=== PATIENT | female | born 1985 ===

== ENCOUNTER 2017-11-20 14:17 | Emergency (ER) | payer MEDICAID ==
[2017-11-20] MEDS ORDERED: METH40TA14 PO (14:52)
--- NOTE | 2017-11-20 15:00 | ER Report ---
History and Physical Time Seen By MD: 14:46 Hx. of Stated Complaint: pt presents with hx of iv drug use, and recently relapsed 2 nights ago. States has an abscess form used needles HPI/ROS CHIEF COMPLAINT: Abscess HISTORY OF PRESENT ILLNESS: This is a 32-year-old female who presents to the emergency department for an abscess. Patient states that she is in IV heroin user and has an autoimmune skin disorder. Patient states that she has developed an abscess to her right forearm over the last several days, patient states she was coming landed on her own however she decided to come in for further evaluation. Patient is on doxycycline orally. Patient has no other complaints no chest pain or shortness of breath, no nausea or vomiting. REVIEW OF SYSTEMS: Respiratory: No cough, no dyspnea. Cardiovascular: No chest pain, no palpitations. Gastrointestinal: No vomiting, no abdominal pain. Musculoskeletal: No back pain. Integumentary: As above. Allergies: Coded Allergies: No Known Drug Allergies (Unverified , 11/20/17) Home Meds Active Scripts Cephalexin 500 Mg Tab (KEFLEX 500 MG TAB) 500 Mg Tablet, 500 MG PO Q6H, #28 TAB Prov:[facility] 11/20/17 Sulfamethoxazole/Trimet 800-160 Mg Tab (BACTRIM DS TABLET) 1 Each Tablet, 1 TAB PO Q12H, #20 TAB Prov:[facility] 11/20/17 Reported Medications Doxycycline Monohydrate (DOXYCYCLINE MONOHYDRATE) 100 Mg Capsule, 100 MG PO BID , CAPSULE 11/20/17 Prazosin Hcl (PRAZOSIN HCL) 2 Mg Capsule, 2 MG PO QDAY, CAPSULE 11/20/17 Methylphenidate Hcl (RITALIN) 20 Mg Tablet, 20 MG PO 11/20/17 Venlafaxine Hcl (EFFEXOR XR) 75 Mg Cap.er.24h, 75 MG PO QDAY 11/20/17 Methadone Hcl (METHADONE HCL) 40 Mg Tablet.rich, 180 MG PO Q8-12H 11/20/17 Discontinued Reported Medications Doxycycline Hyclate (Doxycycline Hyclate) 75 Mg Tablet 11/20/17 Past Medical/Surgical History Patient has a past medical and surgical history of lichen sclerosis, 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 Reviewed Nurses Notes: Yes Constitutional Vital Sign - Last 24 Hours 11/20/17 11/20/17 14:42 15:58 Temp 98.3 Pulse 68 72 Resp 20 20 B/P (MAP) 101/61 105/63 (77) Pulse Ox 95 95 O2 Delivery Room Air Room Air Physical Exam General Appearance: The patient is alert, has no immediate need for airway protection and no current signs of toxicity. Eyes: Pupils equal and round no injection. Respiratory: Chest is non tender, lungs are clear to auscultation. Cardiac: regular rate and rhythm. Gastrointestinal: Abdomen is soft and non tender, no masses, bowel sounds normal. Musculoskeletal: Neck: Neck is supple and non tender. Extremities have full range of motion and are non tender. Skin: Large abscess to the right ulnar side of the forearm. With surrounding erythema. Multiple scars and wounds and track hein. Multiple skin grafts. DIFFERENTIAL DIAGNOSIS: After history and physical exam differential diagnosis was considered for abscess. Medical Decision Making ED Course/Re-evaluation ED Course The patient was admitted to room. A history physical were obtained. Differential diagnoses were considered. Patient has multiple skin grafts secondary to her autoimmune disease, lichen sclerosis, patient is also a long time heroin and cocaine user. Patient states she injected into her right forearm couple days ago and developed an abscess. She states she was going to [place] it on her own however given the size of the abscess she elected to come in for I&D and antibiotics. Patient is taking doxycycline currently. An I&D of the left forearm as noted below. Patient was started on Bactrim and Keflex. Patient is to return within 24 hours for reevaluation of the wound and removal of the wick and possible placement of a 2nd wick. Patient had no other questions or concerns at this time and was discharged home. Patient will return to [facility] Tuesday or Tuesday, she does have a follow-up appointment with her instructional technology specialist. Procedure: Abscess drainage. The patient's abscess was located on the right forearm, ulnar side. I obtained verbal consent from the patient to drain the abscess who was informed about the possibility of bleeding and pain. The abscess was incised with a scalpel and a large amount of purulent drainage was expressed. I irrigated the wound and placed some packing. The patient tolerated the procedure well. The procedure was performed by myself. Decision to Disposition Date: November 20, 2017 Decision to Disposition Time: 15:57 Depart Departure Latest Vital Signs Vital Signs Date Time Temp Pulse Resp B/P (MAP) Pulse Ox O2 Delivery O2 Flow Rate FiO2 11/20/17 15:58 72 20 105/63 (77) 95 Room Air 11/20/17 14:42 98.3 Impression: Primary Impression: Abscess of right forearm Condition: Improved Disposition: HOME OR SELF-CARE New Scripts Cephalexin 500 Mg Tab (KEFLEX 500 MG TAB) 500 Mg Tablet 500 MG PO Q6H, #28 TAB Prov: MARY [facility]- 11/20/17 Sulfamethoxazole/Trimet 800-160 Mg Tab (BACTRIM DS TABLET) 1 Each Tablet 1 TAB PO Q12H, #20 TAB Prov: MARY [facility]ENT- 11/20/17 Patient Instructions: Abscess (ED), Abscess Incision and Drainage (GEN) Additional Instructions: Drink plenty of fluids. Get plenty of rest. Return to the ED in 24 hours for reevaluation of the abscess and removal of the drain. Follow up with your control specialist when you return to [facility]. Return to the ED for any other concerns or worsening symptoms. MARY TRENTP- November 20, 2017 15:00
[2017-11-20] MEDS ORDERED: METH20TA33 PO (15:01)
[2017-11-20] MEDS ORDERED: VENL75CA58 PO (15:01)
[2017-11-20] MEDS ORDERED: DOXY-252 PO (15:03)
[2017-11-20] MEDS ORDERED: PRAZ2CAP26 PO (15:03)
[2017-11-20] MEDS ORDERED: DOXY75TA (15:03)
[2017-11-20] MEDS ORDERED: SULF-198 PO (15:23)
[2017-11-20] MEDS ORDERED: CEPH500T7 PO (15:23)
[2017-11-20 15:58] VITALS: BP 105/63
== END 2017-11-20 16:00 | disposition home or self-care (01) ==
LOC: ER 14:48
DX: L02.413 Cutaneous abscess of right upper limb (principal)
CPT/HCPCS: 87070; 87077; 99283